=== PATIENT | female | born 1930 | race Caucasian/White ===

== ENCOUNTER 2016-12-15 10:42 | Emergency (ER) | payer OTHER ==
[~2016-12-15] VITALS: Ht 165.1 cm; Wt 59.4 kg
[2016-12-15 13:59] VITALS: BP 155/69
== END 2016-12-15 14:02 | disposition home or self-care (01) ==
LOC: ER 10:42
DX: S02.19XA Other fracture of base of skull, initial encounter for closed fracture (principal); S01.112A Laceration without foreign body of left eyelid and periocular area, initial encounter; H40.89 Other specified glaucoma; W01.0XXA Fall on same level from slipping, tripping and stumbling without subsequent striking against object, initial encounter; Y93.01 Activity, walking, marching and hiking; Y92.89 Other specified places as the place of occurrence of the external cause; Y99.8 Other external cause status